=== PATIENT | male | born 1990 | race Two or more races ===

== ENCOUNTER → 2019-02-28 | Outpatient (CLI) | payer SELFPAY ==
[~2019-02-28] MED LIST: ACEBUTCAFT PO; Augmentin 875-1 EACH PO; BENADRYL25 MG PO; Bactrim Ds Tab1 EACH PO; CEPH500 PO; CODGUAEL PO; CYCL10 PO; Cleocin HCl150 MG PO; DOXY100T53 PO; EPIN.3I IM; HYDACE5 PO; HYDACE5325 PO; IBUP600 PO; INCARCERATION; KETO15TC TP; Keflex500 MG PO; LORA10 PO; METPRE4DP PO; MUPI2TO TOP; Naprosyn500 MG PO; Norco 5-325 Ta1 EACH PO; ONDA4 PO; ONDA4ODT MM; PENVK500 PO; PERM5TC TOP; PRED10 PO; PROM25 PO; Pepcid40 MG PO; Prednisone20 MG PO; RXTRAM50 PO; Robaxin500 MG PO; SULTRIDS PO; TRAM50 PO; TRIA80TC TOP; Ultram50 MG PO; Veetids 500500 MG PO; Zithromax Tri-500 MG PO
[2019-03-02 01:07] LABS: CHLAMYDIA TRACHOMATIS, NAA Negative (Negative); NEISSERIA GONORRHOEAE, NAA Negative (Negative)
== END ==
LOC: LAB 11:41 → LAB SHORT 11:41
PROVIDERS: Registered Nurse Community Health
DX: Z11.3 Encounter for screening for infections with a predominantly sexual mode of transmission (principal); Z20.2 Contact with and (suspected) exposure to infections with a predominantly sexual mode of transmission
CPT/HCPCS: 87491; 87591

== ENCOUNTER → 2019-07-23 | Outpatient (CLI) | payer SELFPAY | LOC: LAB 13:57 → LAB SHORT 13:57 | DX: R21 Rash and other nonspecific skin eruption (principal) | CPT/HCPCS: 87070; 87205 ==

== ENCOUNTER 2020-09-29 17:09 | Emergency (ER) | payer SELFPAY ==
[~2020-09-29] VITALS: Ht 182.9 cm; Wt 81.7 kg
[~2020-09-29 17:09] MED LIST changes: +CETI5 PO; +PRED20 PO
[2020-09-29 19:00] LABS: Influenza A, PCR Negative (NEGATIVE); Influenza B, PCR Negative (NEGATIVE); Resp Syncytial Virus, PCR Negative (NEGATIVE); SARS-Cov-2 (COVID-19) PCR, MMC Negative (NEGATIVE)
== END 2020-09-29 19:20 | disposition home or self-care (01) ==
LOC: ER 17:09
PROVIDERS: Emergency Medicine
DX: J06.9 Acute upper respiratory infection, unspecified (principal); Z20.828 Contact with and (suspected) exposure to other viral communicable diseases; Z91.030 Bee allergy status; Z88.6 Allergy status to analgesic agent; Z87.891 Personal history of nicotine dependence
CPT/HCPCS: 0241U; 71045; 94640; 99284-25

== ENCOUNTER 2020-12-04 21:36 | Emergency (ER) | payer SELFPAY ==
[~2020-12-04] VITALS: Ht 182.9 cm; Wt 81.7 kg
[2020-12-04] MEDS ORDERED: Vibramycin100 MG PO (22:19)
== END 2020-12-04 22:39 | disposition home or self-care (01) ==
LOC: ER 21:36
DX: A54.9 Gonococcal infection, unspecified (principal); Z91.030 Bee allergy status; Z88.6 Allergy status to analgesic agent; Z87.891 Personal history of nicotine dependence
CPT/HCPCS: 96372; 99282-25; A9270; J0696

== ENCOUNTER 2021-05-25 17:17 | Emergency (ER) | payer OTHER ==
[~2021-05-25 17:17] MED LIST changes: +Vibramycin100 MG PO
== END 2021-05-25 17:56 | disposition left against medical advice (07) ==
LOC: ER 17:17
DX: Z53.21 Procedure and treatment not carried out due to patient leaving prior to being seen by health care provider (principal)

== ENCOUNTER 2022-12-29 17:25 | Emergency (ER) | payer OTHER ==
[~2022-12-29] VITALS: Ht 182.9 cm; Wt 83.9 kg
[~2022-12-29 17:25] MED LIST changes: +AMOCLA875 PO; +EPIPEN0.3 MG/0.3 IM
[2022-12-29 18:10] LABS: BASOPHILS ABSOLUTE AUTO 0.06 K/mm3 (0.00-0.23); BASOPHILS PERCENT AUTO 1 % (0-2); EOSINOPHILS ABSOLUTE AUTO 0.14 K/mm3 (0.00-0.68); EOSINOPHILS PERCENT AUTO 1 % (0-6); Hematocrit 45.7 % (37.0-53.0); Hemoglobin 15.9 g/dL (13.5-17.5); IMMATURE GRAN ABSOLUTE AUTO 0.03 K/mm3 (0.00-0.10); IMMATURE GRAN PERCENT AUTO 0 % (0-1); LYMPHOCYTES ABSOLUTE AUTO 2.39 K/mm3 (0.84-5.20); LYMPHOCYTES PERCENT AUTO 19 % (21-46); MONOCYTES ABSOLUTE AUTO 1.05 K/mm3 (0.16-1.47); MONOCYTES PERCENT AUTO 8 % (4-13); Mean Corpuscular HGB 30.2 pg (26.0-34.0); Mean Corpuscular HGB Conc 34.8 g/dL (31.5-36.5); Mean Corpuscular Volume 87 fL (80-100); Mean Platelet Volume 8.6 fL (9.1-12.4); NEUTROPHILS ABSOLUTE AUTO 8.82 K/mm3 (1.96-9.15); NEUTROPHILS PERCENT AUTO 71 % (41-73); Platelet Count 299 K/mm3 (150-400); RDW Coefficient Variation 12.1 % (11.7-14.2); RDW Standard Deviation 38.5 fL (35.1-46.3); Red Blood Cell Count 5.26 M/mm3 (4.30-5.90); White Blood Cell Count 12.49 K/mm3 (4.00-11.30)
[2022-12-29 18:41] LABS: Albumin, Blood 4.1 g/dL (3.4-5.0); Albumin/Globulin Ratio 1.2 (0.8-1.8); Bilirubin, Total 0.6 mg/dL (0.1-1.0); Bun/Creatinine Ratio 14.1 (12.0-20.0); Calcium, Blood 8.8 mg/dL (8.5-10.1); Creatinine, Blood 0.85 mg/dL (0.60-1.20); Globulin, Blood 3.3 g/dL (2.2-4.0); Potassium, Blood 3.8 mmol/L (3.5-5.5); Total Protein, Blood 7.4 g/dL (6.4-8.2)
[2022-12-29] MEDS ORDERED: CEFP200 PO (22:54)
== END 2022-12-29 23:09 | disposition home or self-care (01) ==
LOC: ER 17:25
PROVIDERS: Physician Assistant
DX: L03.113 Cellulitis of right upper limb (principal); D72.829 Elevated white blood cell count, unspecified; Z88.8 Allergy status to other drugs, medicaments and biological substances; Z91.030 Bee allergy status; Z87.891 Personal history of nicotine dependence
CPT/HCPCS: 80053; 85025; 96365; 99283-25; J0696

== ENCOUNTER → 2023-01-15 | Outpatient (CLI) | payer OTHER ==
[~2023-01-15] MED LIST changes: +CEFP200 PO
[2023-01-15 15:52] LABS: BASOPHILS ABSOLUTE AUTO 0.16 K/mm3 (0.00-0.23); BASOPHILS PERCENT AUTO 1 % (0-2); EOSINOPHILS ABSOLUTE AUTO 0.02 K/mm3 (0.00-0.68); EOSINOPHILS PERCENT AUTO 0 % (0-6); Hemoglobin 14.9 g/dL (13.5-17.5); Mean Corpuscular HGB 30.4 pg (26.0-34.0); Mean Corpuscular HGB Conc 34.7 g/dL (31.5-36.5); Mean Corpuscular Volume 88 fL (80-100); Mean Platelet Volume 8.7 fL (9.1-12.4); Platelet Count 168 K/mm3 (150-400); RDW Coefficient Variation 12.8 % (11.7-14.2); RDW Standard Deviation 40.8 fL (35.1-46.3); White Blood Cell Count 12.87 K/mm3 (4.00-11.30)
[2023-01-15 15:58] LABS: IMMATURE GRAN ABSOLUTE AUTO 0.04 K/mm3 (0.00-0.10); IMMATURE GRAN PERCENT AUTO 0 % (0-1); LYMPHOCYTES ABSOLUTE AUTO 8.89 K/mm3 (0.84-5.20); LYMPHOCYTES PERCENT AUTO 69 % (21-46); MONOCYTES ABSOLUTE AUTO 1.48 K/mm3 (0.16-1.47); MONOCYTES PERCENT AUTO 12 % (4-13); NEUTROPHILS ABSOLUTE AUTO 2.28 K/mm3 (1.96-9.15); NEUTROPHILS PERCENT AUTO 18 % (41-73)
[2023-01-15 16:07] LABS: Albumin, Blood 3.6 g/dL (3.4-5.0); Albumin/Globulin Ratio 0.9 (0.8-1.8); Bilirubin, Total 2.9 mg/dL (0.1-1.0); Bun/Creatinine Ratio 7.6 (12.0-20.0); Calcium, Blood 9.4 mg/dL (8.5-10.1); Creatinine, Blood 0.92 mg/dL (0.60-1.20); Globulin, Blood 3.8 g/dL (2.2-4.0); Potassium, Blood 3.8 mmol/L (3.5-5.5); Total Protein, Blood 7.4 g/dL (6.4-8.2)
[2023-01-15 16:35] LABS: BAND PERCENT MAN 2 % (0-8); BASOPHILS PERCENT MAN 0 % (0-2); EOSINOPHILS PERCENT MAN 0 % (0-6); LYMPHOCYTES % ATYPICAL MANUAL 27 % (0-0); LYMPHOCYTES ABSOLUTE MAN 9.26 K/mm3 (0.84-5.20); LYMPHOCYTES PERCENT MAN 45 % (21-46); MONOCYTES PERCENT MAN 7 % (4-13); SEG NEUTROPHILS PERCENT MAN 19 % (41-73); TOTAL CELLS COUNTED 100
== END | disposition home or self-care (01) ==
LOC: LAB SHORT 15:47
PROVIDERS: Physician Assistant
DX: R10.9 Unspecified abdominal pain (principal)
CPT/HCPCS: 80053; 83690; 85025

== ENCOUNTER 2025-03-10 12:36 | Emergency (ER) | payer OTHER ==
[~2025-03-10] VITALS: Ht 180.3 cm; Wt 83.0 kg
[~2025-03-10 12:36] MED LIST changes: +HYDHCL25; +PROZAC2010 PO
[2025-03-10 12:58] VITALS: BP 132/93
[2025-03-10] MEDS ORDERED: Ketorolac Tromethamine 30mg Vial IM ONE (13:05)
[2025-03-10] MEDS ORDERED: CYCL10 PO (15:03)
[2025-03-10] MEDS ORDERED: IBUP600 PO (15:03)
== END 2025-03-10 15:04 | disposition home or self-care (01) ==
LOC: ER 12:36
DX: S20.212A Contusion of left front wall of thorax, initial encounter (principal); S40.022A Contusion of left upper arm, initial encounter; M25.512 Pain in left shoulder; G43.909 Migraine, unspecified, not intractable, without status migrainosus; Z87.891 Personal history of nicotine dependence; Y04.2XXA Assault by strike against or bumped into by another person, initial encounter
CPT/HCPCS: 71046; 73030; 73080; 96372; 99283-25; J1885

== ENCOUNTER 2025-04-23 06:10 | Day surgery (SDC) | payer OTHER ==
[~2025-04-23] VITALS: Ht 180.3 cm; Wt 78.5 kg
[2025-04-23] MEDS ORDERED: CeFAZolin Sodium 2,000 MG VIAL ONE (06:29)
[2025-04-23] MEDS ORDERED: Bupivacaine 0.5% W/EPI 1:200000 SDV 30 ML Vial ONE (07:07)
[2025-04-23] MEDS ORDERED: Dexmedetomidine HCL 200 MCG / 2 ML ONE (07:12)
[2025-04-23] MEDS ORDERED: FentaNYL Citrate 50 MCG/ML 2 ML Injection ONE ×3 (07:16→09:39)
[2025-04-23] MEDS ORDERED: Midazolam HCl 1MG / ML 2ML Vial ONE (07:16)
[2025-04-23] MEDS ORDERED: HYDROmorphone HCl/Pf 1MG SYR ONE ×2 (07:16→08:18)
[2025-04-23] MEDS ORDERED: Ondansetron HCl 2 MG / ML 2ML Vial ONE (07:53)
[2025-04-23] MEDS ORDERED: Dexamethasone Sod Phos 10 MG/ML 1ML VIAL ONE (07:53)
[2025-04-23] MEDS ORDERED: Sugammadex Sodium 200 MG/2ML SDV (100 MG/ML) ONE (09:01)
--- NOTE | 2025-04-23 09:43 | NUR ---
04/23/25 0943 DANIELLE JACINTO PT C/O SEVERE PAIN. DENIES NAUSEA. DECLINES DILAUDID- CAUSED MUSCLES TO SEIZE UP. WILL GIVE FENTANYL 25MCG NOW. OBTAIN ORDER FOR MORPHINE
[2025-04-23] MEDS ORDERED: Morphine Sulfate 4 MG/1 ML Injection ONE ×2 (09:54→10:23)
--- NOTE | 2025-04-23 10:29 | NUR ---
04/23/25 1029 DANIELLE JACINTO PT REMAINS IN BED AT THIS TIME. MORPHINE TOTAL IS 6MG. PAIN 05/01. TOTAL FENTANYL 50MCG PLAN: BLOCK
[2025-04-23 10:31] VITALS: BP 129/101
== END 2025-04-23 12:10 | disposition home or self-care (01) ==
LOC: ORSCSDS 06:10
PROVIDERS: Orthopaedic Surgery
PROC: 0LQ20ZZ Repair Left Shoulder Tendon, Open Approach (ICD-10-PCS; principal; 2025-04-23 07:30)
DX: S29.011A Strain of muscle and tendon of front wall of thorax, initial encounter (principal); F41.9 Anxiety disorder, unspecified; Y04.8XXA Assault by other bodily force, initial encounter; F17.290 Nicotine dependence, other tobacco product, uncomplicated; Z79.899 Other long term (current) drug therapy
CPT/HCPCS: A9270; J0690; J1100; J1171; J2250; J2270; J2405; J2704; J3010; J7120